=== PATIENT | male | born 1955 | race Caucasian/White ===

== ENCOUNTER 2016-11-07 08:12 | Day surgery (SDC) | payer MEDICARE, MEDICAID ==
[2016-11-06 13:11] VITALS: BMI 23.1
[~2016-11-07] VITALS: Ht 165.1 cm; Wt 59.0 kg
[2016-11-07] VITALS (11 sets, daily range): BP systolic 104–134; BP diastolic 58–71; PULSE 52–58; RESP 8–18; Ht 165.1 cm; Wt 59.0 kg
[2016-11-07] MEDS ORDERED: GELATIN SIZE 100 SPONGE ONE (08:49)
[2016-11-07] MEDS ORDERED: THROMBIN 5000 UNIT VIAL ONE (08:49)
[2016-11-07] MEDS ORDERED: LIDOCAINE 1% (MPF) 30 ML INJ ONE (08:49)
[2016-11-07] MEDS ORDERED: HEPARIN 1000 UNITS/ML 10 ML INJ ONE (08:50)
[2016-11-07 09:14] LABS: ADD SCAN DIFF NO
[2016-11-07 09:17] LABS: BASOPHILS % 0.7 % (0.0-2.0); EOSINOPHILS # 0.4 10^3/ul (0.0-0.5); EOSINOPHILS % 7.1 % (0.0-7.0); HEMATOCRIT 26.8 % (42.0-52.0); HEMOGLOBIN 8.9 g/dl (14.0-18.0); LYMPHOCYTES % 18.6 % (15.0-51.0); MEAN CORPUSCULAR HEMOGLOBIN 31.6 pg (29.0-33.0); MEAN CORPUSCULAR HGB CONC 33.2 g/dl (32.0-37.0); MEAN PLATELET VOLUME 8.6 fl (7.4-10.4); MONOCYTE # 0.7 10^3/ul (0.3-0.9); MONOCYTES % 12.6 % (0.0-11.0); NEUTROPHIL # 3.3 10^3/ul (1.6-7.5); NEUTROPHILS % 60.6 % (39.0-77.0); PLATELET COUNT 334 10^3/UL (140-415); RED BLOOD COUNT 2.82 10^6/ul (4.70-6.10); RED CELL DISTRIBUTION WIDTH 16.8 % (11.5-14.5); WHITE BLOOD COUNT 5.5 10^3/ul (4.8-10.8)
--- NOTE | 2016-11-07 09:30 | RADRPT ---
PROCEDURE: Chest Radiograph. CLINICAL INDICATION: Preop. TECHNIQUE: Single frontal chest radiograph. COMPARISON: None available FINDINGS: A right chest wall tunneled hemodialysis catheters in place with distal tip in the right atrium. Th e heart is magnified and may be enlarged. Patient rotation limits evaluation of the heart size. At herosclerotic calcifications are present . There is a moderate right pleural effusion with adjacent atelectasis/infiltrate. The left lung is clear. The bones are intact. IMPRESSION: 1. Moderate right pleural effusion with adjacent atelectasis/infiltrate. 2. Atherosclerotic vascular disease. 3. Right chest wall tunneled hemodialysis catheter. RPTAT: KK .Chas Krishnan MD, Date Time Electronically viewed and signed by .Chas Krishnan MD, MD on 11/07/2016 09:30 .B/
[2016-11-07 09:32] LABS: INR 1.17; PT RATIO 1.2
[2016-11-07 09:33] LABS: PARTIAL THROMBOPLASTIN TIME 33.2 Sec (25.0-35.0)
--- NOTE | 2016-11-07 09:33 | HPN ---
Date/Time of Note Date/Time of Note DATE: 11/07/16 TIME: 09:32 Interval H&P Admission Note Pt. seen H&P reviewed: No system changes TERRIE SHEEHAN MD November 07, 2016 09:32
[2016-11-07 09:36] LABS: ALBUMIN 3.5 g/dl (3.3-4.9); ALBUMIN/GLOBULIN RATIO 0.77; BILIRUBIN,INDIRECT 0.1 mg/dl (0-1.1); BILIRUBIN,TOTAL 0.1 mg/dl (0.2-1.3)
[2016-11-07 09:43] LABS: CALCIUM 8.8 mg/dl (8.4-10.2); CREATININE 3.84 mg/dl (0.61-1.24); POTASSIUM 3.9 mmol/L (3.5-5.1)
[2016-11-07] MEDS ORDERED: FENTAnyl 50 MCG/ML VIAL ONE (10:09)
[2016-11-07] MEDS ORDERED: MIDAZOLAM 1 MG/ML 2 ML INJ ONE (10:09)
[2016-11-07] MEDS ORDERED: IMDUR PO (10:17)
[2016-11-07] MEDS ORDERED: AMLO-147 PO (10:17)
[2016-11-07] MEDS ORDERED: DARB25VI IJ (10:17)
[2016-11-07] MEDS ORDERED: ATOR40TA68 PO (10:17)
[2016-11-07] MEDS ORDERED: ASPI-664 PO (10:17)
[2016-11-07] MEDS ORDERED: BENA40TA41 PO (10:17)
[2016-11-07] MEDS ORDERED: HYDROmorphONE (0.2 MG/ML) 10ML SYG IV PRN ×2 (10:30)
[2016-11-07] MEDS ORDERED: LABETALOL HCL 20MG INJ IV PRN (10:30)
[2016-11-07] MEDS ORDERED: ONDANSETRON 4 MG INJ IV PRN (10:30)
[2016-11-07] MEDS ORDERED: FENTAnyl 50 MCG/ML VIAL IV PRN (10:30)
[2016-11-07] MEDS ORDERED: DIPHENHYDRAMINE 50 MG INJ IV PRN (10:30)
[2016-11-07] MEDS ORDERED: hydrALAzine 20 MG INJ IV PRN (10:30)
[2016-11-07] MEDS ORDERED: PROPOFOL 20 ML ONE (11:12)
[2016-11-07] MEDS ORDERED: LIDOCAINE 2% (SDV) 5 ML INJ ONE (11:12)
[2016-11-07] MEDS ORDERED: CEFAZOLIN 1 GM INJ ONE (11:12)
--- NOTE | 2016-11-07 11:59 | OPR ---
DATE OF OPERATION: 11/07/2016 PREOPERATIVE DIAGNOSIS: End-stage renal disease. POSTOPERATIVE DIAGNOSIS: End-stage renal disease. PROCEDURE PERFORMED: Creation of left brachiocephalic AV fistula. SURGEON: Terrie Knight MD ANESTHESIA: Local with sedation. ESTIMATED BLOOD LOSS: Minimal. COMPLICATIONS: No intraprocedural complications. INDICATIONS: This is a 61-year-old diabetic, hypertensive gentleman with end-stage renal disease on dialysis via PermCath. He is right-handed. He has a good left upper arm cephalic vein on venous m ap. I brought him in today for left arm AV fistula creation. DESCRIPTION OF PROCEDURE: The patient was brought to the operating room and placed on the table in supine position. Left arm was prepped and draped in the usual sterile fashion. I had marked the ce phalic vein on the skin at the elbow. I looked at it on the way up. There is an area of stenosis i n the distal part of the upper arm about 5 cm above the elbow. I plan to dilate this area, which I had marked. I then anesthetized across the antecubital crease using about 10 mL of 1% Xylocaine. I made an incision across the crease and carefully dissected out the cephalic vein. I traced it alecia n into the forearm to where it divided. Ligated it distally with surgical clips and divided it. I cut the septum between the 2 branches creating a levine at the end of the vein. I then passed serial dilators. I started with a 1.5 mm dilator and went all the way up to a 3.5 mm dilator, which passed without any difficulty. There was definitely an area of narrowing in the vein about 2 to 3 cm abov e the elbow. It dilated nicely. I got good backflow and it flushed easily. I then cut the connect brannon tissue overlying the brachial artery pulse. I dissected out the brachial artery at the elbow. I clamped it proximally and distally. An 8 mm long anterior arteriotomy and anastomosed the end of the vein to the side of the artery using 6-0 Prolene suture in a running standard vascular surgical fashion. I removed the clamps. There was a good thrill in the vein all the way up into the upper a rm. There was good hemostasis. I closed the skin incision in 2 layers using an inner layer of 3-0 Vicryl and an outer layer of 4-0 Monocryl subcuticular suture. The radial pulse was not palpable preoperatively because it was so ca lcified and it remained nonpalpable, but the hand was warm, pink, and well perfused. He tolerated t he procedure well and was transferred to the recovery room in stable condition. Dictated By: TERRIE IBRAHIM/VIVIANE Conf#: [id number] DID#: [id number]
--- NOTE | 2016-11-07 18:20 | RADRPT ---
Vent Rate: 54 bpm RR Interval: 0 msec NH Interval: 162 msec QRS Duration: 88 msec QT Interval: 482 msec QTC Interval: 457 msec P-R-T Kathleen: 17 - 33 - -35 degrees Sinus bradycardia Nonspecific ST and T wave abnormality Abnormal ECG Electronically Signed By: Rudolph Callahan [id number]
== END 2016-11-07 13:51 | disposition home or self-care (01) ==
LOC: SDS 08:12
PROVIDERS: ATTEND Surgery Vascular Surgery
DX: N18.6 End stage renal disease (principal); I12.0 Hypertensive chronic kidney disease with stage 5 chronic kidney disease or end stage renal disease; E11.319 Type 2 diabetes mellitus with unspecified diabetic retinopathy without macular edema
CPT/HCPCS: 36821; 71010; 80053; 82962; 85025; 85610; 85730; 93005; C1725; J0690; J1644; J2250; J3010

== ENCOUNTER 2016-12-20 19:15 | Inpatient (IN) | payer MEDICARE, MEDICAID ==
[~2016-12-20] VITALS: Ht 167.6 cm; Wt 58.1 kg
[~2016-12-20 19:15] MED LIST: AMLO-147 PO; ASPI-664 PO; ATOR40TA68 PO; BENA40TA41 PO; DARB25VI IJ; IMDUR PO
[2016-12-20] MEDS ORDERED: CEFTRIAXONE 1 GM/50 ML (PMX) 50 ML IVPB ONE (20:00)
[2016-12-20] MEDS ORDERED: PIPER-TAZO 3.375 GM IV (PMX) 100 ML IVPB ONE (20:00)
[2016-12-20] MEDS ORDERED: IBUPROFEN 600 MG TAB PO ONE (20:00)
[2016-12-20 20:11] LABS: ADD SCAN DIFF NO
[2016-12-20 20:17] LABS: ABNORMAL IP MESSAGE 1; BASOPHILS % 0.4 % (0.0-2.0); EOSINOPHILS # 0.5 10^3/ul (0.0-0.5); EOSINOPHILS % 8.2 % (0.0-7.0); HEMATOCRIT 25.2 % (42.0-52.0); HEMOGLOBIN 8.2 g/dl (14.0-18.0); LYMPHOCYTES # 0.6 10^3/ul (0.8-2.9); LYMPHOCYTES % 10.2 % (15.0-51.0); MEAN CORPUSCULAR HEMOGLOBIN 32.7 pg (29.0-33.0); MEAN CORPUSCULAR HGB CONC 32.5 g/dl (32.0-37.0); MEAN CORPUSCULAR VOLUME 100.4 fl (82.0-101.0); MEAN PLATELET VOLUME 8.7 fl (7.4-10.4); MONOCYTE # 0.7 10^3/ul (0.3-0.9); MONOCYTES % 11.6 % (0.0-11.0); NEUTROPHIL # 3.9 10^3/ul (1.6-7.5); NEUTROPHILS % 69.2 % (39.0-77.0); PLATELET COUNT 273 10^3/UL (140-415); RED BLOOD COUNT 2.51 10^6/ul (4.70-6.10); RED CELL DISTRIBUTION WIDTH 15.8 % (11.5-14.5); WHITE BLOOD COUNT 5.6 10^3/ul (4.8-10.8)
[2016-12-20 20:33] LABS: INR 1.1; PROTIME 14.2 Sec (12.2-14.2); PT RATIO 1.1
--- NOTE | 2016-12-20 20:48 | ERA ---
ER Documentation Chief Complaint Date/Time DATE: 12/20/16 TIME: 20:41 Chief Complaint right foot 2nd toe bleeding, pt denies pain HPI 61-year-old man brought in by EMS from care home for toenail avulsion of the right foot. Patient has a long history of severe onychomycosis, and it seems this occurred somewhat spontaneously. He denies any direct trauma to the foot and does admit to having recent redness to the right leg. He denies fevers or chills, no chest pain or shortness of breath, no vomiting or diarrhea. Patient has end-stage kidney disease and was hemodialyzed earlier today. ROS All systems reviewed and are negative except as per history of present illness. Allergies Allergies: Coded Allergies: No Known Allergy (Unverified , 11/06/16) PMhx/Soc End-stage kidney disease hemodialyzed Thursday, , Saturdays, hypertension , diabetes mellitus, dysphagia, blindness, hemiplegia, anemia, hyperlipidemia History of Surgery: No Anesthesia Reaction: No Hx Neurological Disorder: Yes (GEN. WEAKNESS UNABLE TO AMBULATE) Hx Respiratory Disorders: No Hx Cardiac Disorders: Yes (HTN, CHOLESTEROL) Hx Psychiatric Problems: No Hx Miscellaneous Medical Probl: No Hx Alcohol Use: No Hx Substance Use: No Hx Tobacco Use: No Smoking Status: Never smoker FmHx Family History: No diabetes Physical Exam Vitals Vital Signs Date Time Temp Pulse Resp B/P Pulse Ox O2 Delivery O2 Flow Rate FiO2 12/20/16 19:18 98.3 67 20 157/70 96 Physical Exam GENERAL: Well-developed, well-nourished, well-hydrated, in no apparent distress , looks nontoxic in appearance HEENT: Moist mucous membranes, pink conjunctiva, no cervical spine tenderness or step-off deformities, no goiter, no jaundice or icterus, extraocular movements intact without pain. No submandibular induration, and no pharyngeal erythema NEURO: Alert and oriented 3, cranial nerves II through XII intact bilaterally, pupils equal round reactive to light, no facial asymmetry, mild motor deficit to the left upper and lower extremity compared to the right CARDIAC: Regular rate and rhythm, no murmurs rubs or gallops LUNGS: Clear bilaterally no wheezing crackles or stridor ABDOMEN: Soft nontender, no guarding, no rigidity, no rebound, no psoas sign no obturator sign. Normoactive bowel sounds SKIN: Large amount of erythema and skin induration to the right lower leg with multiple superficial ulcerations concerning for cellulitis, toenail of the right foot third toe is completely avulsed, no active bleeding. EXTREMITIES: No clubbing cyanosis or edema, calves are bilaterally symmetrical, no Homans sign, no popliteal cord sign. Distal pulses equal and bilateral PSYCH: Normal affect without agitation or irritability Result Diagram: 12/20/16195412/20/161954 Results 24 hrs Laboratory Tests Test 12/20/16 19:55 White Blood Count 5.610^3/ul Red Blood Count 2.5110^6/ul Hemoglobin 8.2g/dl Hematocrit 25.2% Mean Corpuscular Volume 100.4fl Mean Corpuscular Hemoglobin 32.7pg Mean Corpuscular Hemoglobin Concent 32.5g/dl Red Cell Distribution Width 15.8% Platelet Count 76510^3/UL Mean Platelet Volume 8.7fl Neutrophils % 69.2% Lymphocytes % 10.2% Monocytes % 11.6% Eosinophils % 8.2% Basophils % 0.4% Nucleated Red Blood Cells % 0.0/100WBC Neutrophils # 3.910^3/ul Lymphocytes # 0.610^3/ul Monocytes # 0.710^3/ul Eosinophils # 0.510^3/ul Basophils # 0.010^3/ul Nucleated Red Blood Cells # 0.010^3/ul Prothrombin Time 14.2Sec Prothrombin Time Ratio 1.1 INR International Normalized Ratio 1.10 Sodium Level 136mmol/L Potassium Level 4.2mmol/L Chloride Level 97mmol/L Carbon Dioxide Level 29mmol/L Anion Gap 14 Blood Urea Nitrogen 35mg/dl Creatinine 3.28mg/dl Glucose Level 222mg/dl Calcium Level 8.8mg/dl Total Bilirubin 0.0mg/dl Direct Bilirubin 0.00mg/dl Indirect Bilirubin 0.0mg/dl Aspartate Amino Transf (AST/SGOT) 27IU/L Alanine Aminotransferase (ALT/SGPT) 23IU/L Alkaline Phosphatase 209IU/L Troponin I 0.039ng/ml Total Protein 8.3g/dl Albumin 4.2g/dl Globulin 4.10g/dl Albumin/Globulin Ratio 1.02 Lipase 66U/L Current Medications Medications (Trade) Dose Ordered Sig/Elliot Route PRN Reason Start Time Stop Time Status Last Admin Dose Admin Ceftriaxone Sodium 50 ml @ 100 mls/hr ONCE ONCE IVPB 12/20/16 20:00 12/20/16 20:29 DC 12/20/16 20:15 Piperacillin Sod/ Tazobactam Sod (Zosyn 3.375gm/ 100 ml (Pmx)) 100 ml @ 200 mls/hr ONCE ONCE IVPB 12/20/16 20:00 12/20/16 20:29 DC 12/20/16 20:15 Ibuprofen (Motrin) 600 mg ONCE ONCE PO 12/20/16 20:00 12/20/16 20:01 DC 12/20/16 20:15 Procedures/MDM IV line was established patient was placed on machine wiper rhythm strip revealed a sinus rhythm at about 70 bpm with upright P and T waves. Patient was afebrile. EKG performed, read by me: 67 bpm, normal sinus rhythm, normal axis, no acute ST segment changes, narrow QRS complex, with good R-wave progression in precordial leads. One view chest x-ray performed, read by me revealed a pleural effusion on the right and hemodialysis catheter in the right chest, no acute infiltrates, no pneumothorax. Three-view x-ray of the right foot performed, read by me there is chronic arthritic changes and osteopenia, no acute fracture or dislocation noted. I administered ibuprofen 600 mg p.o. and ceftriaxone 1 g IV as well as Zosyn 3.375 g IV for right lower extremity cellulitis. CBC reveals anemia with a hemoglobin of 8.2, electrolytes reveal renal failure, liver function tests normal, troponin negative. Patient to be admitted to [facility] for acute right lower extremity cellulitis. Departure Diagnosis: Primary Impression: Cellulitis of right lower extremity Additional Impressions: Hypertension Qualified Code: I10 - Essential hypertension End stage kidney disease Anemia Qualified Code: D64.9 - Anemia, unspecified type Toenail avulsion Qualified Code: S91.209A - Toenail avulsion, initial encounter Condition: GERRI Cuevas MD Dec 20, 2016 20:48
[2016-12-20 20:49] LABS: ALBUMIN 4.2 g/dl (3.3-4.9); ALBUMIN/GLOBULIN RATIO 1.02; CALCIUM 8.8 mg/dl (8.4-10.2); CREATININE 3.28 mg/dl (0.61-1.24); POTASSIUM 4.2 mmol/L (3.5-5.1); TOTAL PROTEIN 8.3 g/dl (6.1-8.1)
--- NOTE | 2016-12-20 20:53 | RADRPT ---
PROCEDURE: X-ray right foot CLINICAL INDICATION: Injury to the right foot. TECHNIQUE: 3 views right foot COMPARISON: None FINDINGS: Demineralization limits evaluation of fine osseous detail. Intra-articular erosions at the first in terphalangeal joint suggesting arthropathy. Hammertoe deformities at the second through fifth toes. Soft tissue vascular calcifications. No acute fracture. IMPRESSION: Demineralization and degenerative changes, without acute fracture. RPTAT: [facility] Physician [facility] Date Time Electronically viewed and signed by Physician [facility] on 12/20/2016 20:53 RS/
--- NOTE | 2016-12-20 20:55 | RADRPT ---
PROCEDURE: XR Chest. CLINICAL INDICATION: Chest pain. Clinical concern for fracture TECHNIQUE: Portable AP upright view of the chest was obtained. COMPARISON: 11/07/2016 FINDINGS: The cardiomediastinal silhouette is within normal limits. Compressive atelectasis of the right lowe r lobe is similar to the prior exam the left lung is clear. Moderate to large right pleural effusio n obscuring the right hemidiaphragm is again noted, the left pleural space appears clear although th e left costophrenic angle is not included in the field of view. A right subclavian Perma-Cath is ag ain noted in good position. There is no evidence of pneumothorax. Mild demineralization is noted w ithout evidence of acute fracture. RPTAT:HJJR IMPRESSION: 1. No evidence of acute fracture involving the thorax. 2. Stable right lower hemithorax consolidation believed to reflect a pleural effusion with compress brannon atelectasis of the right lower lobe. Physician [place] Date Time Electronically viewed and signed by Physician [place] on 12/20/2016 20:54 /
[2016-12-20 21:01] LABS: TROPONIN-I 0.039 ng/ml (0.00-0.12)
[2016-12-20 21:39] VITALS: BP 149/70; RESP 18
[2016-12-20 21:54] VITALS: Ht 167.6 cm; Wt 58.1 kg
[2016-12-20] MEDS ORDERED: CEFTRIAXONE 1 GM/50 ML (PMX) 50 ML IVPB SCH (22:00)
[2016-12-20] MEDS ORDERED: ACETAMINOPHEN 325 MG TAB PO PRN (22:00)
[2016-12-20] MEDS ORDERED: GLUCOSE GEL 15 GRAM TUBE BUCCAL PRN (22:30)
[2016-12-20] MEDS ORDERED: GLUCAGON 1 MG INJ IM PRN (22:30)
[2016-12-20] MEDS ORDERED: DEXTROSE 50% 50 ML SYRINGE IV PRN ×2 (22:30)
[2016-12-20] MEDS ORDERED: GLUCOSE GEL 15 GRAM TUBE PO PRN ×2 (22:30)
[2016-12-21] MEDS: ACCU-CHEK XX SCH (01:48)
[2016-12-21 05:38] LABS: ADD SCAN DIFF NO
[2016-12-21 05:53] LABS: BASOPHILS % 0.6 % (0.0-2.0); EOSINOPHILS # 0.6 10^3/ul (0.0-0.5); EOSINOPHILS % 10.9 % (0.0-7.0); HEMATOCRIT 26.2 % (42.0-52.0); HEMOGLOBIN 8.2 g/dl (14.0-18.0); LYMPHOCYTES # 0.7 10^3/ul (0.8-2.9); LYMPHOCYTES % 13.7 % (15.0-51.0); MEAN CORPUSCULAR HEMOGLOBIN 31.9 pg (29.0-33.0); MEAN CORPUSCULAR HGB CONC 31.3 g/dl (32.0-37.0); MEAN CORPUSCULAR VOLUME 101.9 fl (82.0-101.0); MEAN PLATELET VOLUME 8.7 fl (7.4-10.4); MONOCYTE # 0.7 10^3/ul (0.3-0.9); MONOCYTES % 13.5 % (0.0-11.0); NEUTROPHIL # 3.2 10^3/ul (1.6-7.5); NEUTROPHILS % 60.7 % (39.0-77.0); PLATELET COUNT 264 10^3/UL (140-415); RED BLOOD COUNT 2.57 10^6/ul (4.70-6.10); RED CELL DISTRIBUTION WIDTH 15.9 % (11.5-14.5); WHITE BLOOD COUNT 5.3 10^3/ul (4.8-10.8)
[2016-12-21 07:20] VITALS: BP 158/72; RESP 18
[2016-12-21] MEDS: INSULIN ASPART [NOVOLOG] 3 ML PEN SC SCH ×4 (08:15→20:49)
[2016-12-21] MEDS ORDERED: IMDUR 60 MG PO SCH (09:00)
[2016-12-21] MEDS ORDERED: AMLODIPINE 10 MG TAB PO SCH (09:00)
[2016-12-21] MEDS ORDERED: ISOSORBIDE MONONITRATE(SR)60 MG TAB PO SCH (09:00)
[2016-12-21] MEDS ORDERED: BENAZEPRIL 40 MG TAB PO SCH (09:00)
[2016-12-21] MEDS: ASPIRIN 81 MG TAB PO SCH (09:00)
[2016-12-21] MEDS: ASPIRIN (EC) 81 MG TAB PO SCH (10:03)
[2016-12-21] MEDS: AMLODIPINE 10 MG TAB PO SCH (10:04)
[2016-12-21] MEDS: ISOSORBIDE MONONITRATE(SR)60 MG TAB PO SCH (10:04)
[2016-12-21] MEDS: BENAZEPRIL 40 MG TAB PO SCH (10:04)
[2016-12-21] MEDS: HEPARIN 5,000 UNIT/0.5 ML VIAL SC SCH ×2 (10:12→20:47)
[2016-12-21] MEDS: [UNRECOGNIZED DRUG - REMARK] XX SCH ×2 (10:30→18:30)
--- NOTE | 2016-12-21 18:19 | QN ---
Documentation Comment [id number] MAGALI CHÁVEZ MD Dec 21, 2016 18:19
--- NOTE | 2016-12-21 18:46 | HP ---
DATE OF ADMISSION: 12/20/2016 HISTORY OF PRESENT ILLNESS: Mr. Powell history is a 61-year-old male who has a history of ESRD, hypertension, a right chest catheter, AV fistula in the left upper extremity. The patient had a left brachiocephalic AV fistula placement 11/07/2016. Noted to have a right foot second toenail came off and patient has leg lesion and is admitted for further management. PAST MEDICAL HISTORY: Positive for hypertension, diabetes mellitus, diabetic nephropathy, retinopathy, and the patient has history of CAD, atherosclerotic heart disease, dyslipidemia, per patient. ALLERGY HISTORY: NEGATIVE. FAMILY HISTORY: Negative. SOCIAL HISTORY: Negative. MEDICATION HISTORY: Listed as patient is on: 1. Amlodipine. 2. Aspirin. 3. Benazepril. 4. Rocephin. 5. The patient is on heparin. 6. Insulin. 7. Isosorbide. REVIEW OF SYSTEMS: HEENT: Positive for diabetic retinopathy. RESPIRATORY: Unremarkable. CARDIOVASCULAR: Unremarkable. ABDOMEN: Unremarkable. EXTREMITIES: Complaining of pain and redness of the right lower extremity. PHYSICAL EXAMINATION: GENERAL: The patient is awake, alert. VITAL SIGNS: Blood pressure 149/70. HEAD: Atraumatic, normocephalic. Pupils: Left pupil has some cloudiness. Pale conjunctivae. NECK: Supple. No JVD. LUNGS: Clear. CARDIOVASCULAR: S1, S2 normal. ABDOMEN: Soft. Bowel sounds positive. No palpable mass or hepatosplenomegaly. No guarding, rebound tenderness. EXTREMITIES: No cyanosis, clubbing. Edema positive. The patient has cellulitic area of the right lower extremity and right second toenail has been removed. CENTRAL NERVOUS SYSTEM: The patient is awake, alert. No deficit. LABORATORY DATA: WBC 5.3, hematocrit 26.2, platelet count of 264. Sodium 136, potassium 4.2. Alkaline phosphatase 209, globulin 4.10. IMAGING: The patient had a foot x-ray done. Shows and degenerative changes without acute fracture. The patient had a chest x-ray that shows no evidence of acute fractures, stable right lower hemithorax with consolidation, pleural effusion with compressive atelectasis. IMPRESSION: 1. Right leg cellulitis. 2. Removal of the second toenail. 3. The patient has hypertension. 4. Diabetes mellitus. 5. Endstage renal disease. 6. Anemia. 7. Possible diabetic retinopathy. 8. History of coronary artery disease. 9. History of dyslipidemia. PLAN: To continue renal diet. Sliding scale. Wound care. Podiatry consultation. Orders were done. Dictated By: MAGALI CHÁVEZ MD BS/NTS Conf#: [id number] DID#: [id number]
[2016-12-21 19:29] VITALS: BP 151/67; RESP 18
[2016-12-21] MEDS: CEFTRIAXONE 1 GM/50 ML (PMX) 50 ML IVPB SCH (20:49)
[2016-12-21] MEDS: ATORVASTATIN 40 MG TAB PO SCH (20:49)
[2016-12-21] MEDS ORDERED: ATORVASTATIN 40 MG TAB PO SCH (21:00)
[2016-12-22] MEDS: ACCU-CHEK XX SCH (02:00)
[2016-12-22] MEDS: [UNRECOGNIZED DRUG - REMARK] XX SCH ×3 (02:30→17:44)
[2016-12-22] MEDS: HYDROCODONE/APAP (5/325) TAB PO PRN ×2 (02:30→07:53)
[2016-12-22 06:36] LABS: CALCIUM 8.7 mg/dl (8.4-10.2); CREATININE 5.59 mg/dl (0.61-1.24); POTASSIUM 4.9 mmol/L (3.5-5.1)
[2016-12-22] MEDS: INSULIN ASPART [NOVOLOG] 3 ML PEN SC SCH ×4 (07:49→21:00)
[2016-12-22 07:54] VITALS: BP 158/70; RESP 16
[2016-12-22] MEDS: ASPIRIN (EC) 81 MG TAB PO SCH (09:03)
[2016-12-22] MEDS: AMLODIPINE 10 MG TAB PO SCH (09:04)
[2016-12-22] MEDS: ISOSORBIDE MONONITRATE(SR)60 MG TAB PO SCH (09:04)
[2016-12-22] MEDS: BENAZEPRIL 40 MG TAB PO SCH (09:04)
[2016-12-22] MEDS: HEPARIN 5,000 UNIT/0.5 ML VIAL SC SCH ×2 (09:12→21:10)
[2016-12-22] MEDS: ASPIRIN 81 MG TAB PO SCH (09:12)
--- NOTE | 2016-12-22 17:47 | PN ---
Date/Time of Note Date/Time of Note DATE: 12/22/16 TIME: 17:43 Assessment/Plan VTE Prophylaxis VTE Prophylaxis Intervention: other Lines/Catheters IV Catheter Type (from [facility]): Saline Lock Urinary Cath still in place: No Assessment/Plan Chief Complaint/Hosp Course IMPRESSION: 1. Right leg cellulitis. 2. Removal of the second toenail. 3. The patient has hypertension. 4. Diabetes mellitus. 5. Endstage renal disease. 6. Anemia. 7. Possible diabetic retinopathy. 8. History of coronary artery disease. 9. History of dyslipidemia. plan hd am antibiotic Problems: Subjective 24 Hr Interval Summary Respiratory: no complaints Cardiovascular: no complaints Gastrointestinal: no complaints Exam/Review of Systems Vital Signs Vitals Vital Signs Date Time Temp Pulse Resp B/P Pulse Ox O2 Delivery O2 Flow Rate FiO2 12/22/16 07:54 98.6 60 16 158/70 95 12/20/16 20:24 Room Air 12/20/16 20:15 3 Intake and Output 12/21/16 12/21/16 12/22/16 15:00 23:00 07:00 Intake Total 530 ml 550 ml Output Total 650 ml Balance 530 ml -100 ml Exam Neck: supple Respiratory: clear to auscultation Cardiovascular: regular rate and rhythm Gastrointestinal: soft Skin: other (rt leg wound redness less) Results Result Diagram: 12/21/16 0454 12/22/16 0540 Results 24 hrs Laboratory Tests Test 12/21/16 20:46 12/22/16 05:40 12/22/16 07:48 12/22/16 12:00 Bedside Glucose 170 98 156 Sodium Level 138 Potassium Level 4.9 Chloride Level 101 Carbon Dioxide Level 22 Anion Gap 20 H Blood Urea Nitrogen 66 #H Creatinine 5.59 #H Glucose Level 103 # Calcium Level 8.7 Test 12/22/16 17:10 Bedside Glucose 194 Medications Medications Current Medications Amlodipine Besylate (Norvasc) 10 mg DAILY PO Last administered on 12/22/16 09: 04; Admin Dose 10 MG; Start 12/21/16 at 09:00 Aspirin (Halfprin) 81 mg DAILY PO Last administered on 12/22/16 09:03; Admin Dose 81 MG; Start 12/21/16 at 09:00 Atorvastatin Calcium (Lipitor) 40 mg QHS PO Last administered on 12/21/16 20: 49; Admin Dose 40 MG; Start 12/21/16 at 21:00 Benazepril HCl (Lotensin) 40 mg DAILY PO Last administered on 12/22/16 09:04; Admin Dose 40 MG; Start 12/21/16 at 09:00 Miscellaneous Information 25 mcg WEEKLY IJ ; Start 12/20/16 at 22:00; Status UNV Isosorbide Mononitrate (Imdur) 60 mg DAILY PO Last administered on 12/22/16 09 :04; Admin Dose 60 MG; Start 12/21/16 at 09:00 Diagnostic Test (Pha) (Accu-Chek) 1 ea 02 XX ; Start 12/21/16 at 02:00 Heparin Sodium (Porcine) (Heparin (5000 Units/0.5 ml)) 5,000 unit BID SC Last administered on 12/22/16 09:12; Admin Dose 5,000 UNIT; Start 12/21/16 at 09:00 Acetaminophen (Tylenol Tab) 650 mg Q6H PRN PO PAIN AND OR ELEVATED TEMP; Start 12/20/16 at 22:00 Acetaminophen/ Hydrocodone Bitart ([place] (5/325)) 1 tab Q6H PRN PO PAIN Last administered on 12/22/16 07:53; Admin Dose 1 TAB; Start 12/20/16 at 22:00 Miscellaneous Information 1 ea NOTE XX ; Start 12/20/16 at 22:30 Glucose (Glutose) 15 gm Q15M PRN PO DECREASED GLUCOSE; Start 12/20/16 at 22:30 Glucose (Glutose) 22.5 gm Q15M PRN PO DECREASED GLUCOSE; Start 12/20/16 at 22: 30 Dextrose (D50w Syringe) 25 ml Q15M PRN IV DECREASED GLUCOSE; Start 12/20/16 at 22:30 Dextrose (D50w Syringe) 50 ml Q15M PRN IV DECREASED GLUCOSE; Start 12/20/16 at 22:30 Glucagon (Glucagen) 1 mg Q15M PRN IM DECREASED GLUCOSE; Start 12/20/16 at 22:30 Glucose (Glutose) 15 gm Q15M PRN BUCCAL DECREASED GLUCOSE; Start 12/20/16 at 22 :30 Aspirin 81 mg 81 mg DAILY PO Last administered on 12/22/16 09:12; Admin Dose 81 MG; Start 12/21/16 at 09:00 Ceftriaxone Sodium (Rocephin) 50 ml @ 100 mls/hr Q24H IVPB Last administered on 12/21/16t 20:49; Admin Dose 100 MLS/HR; Start 12/21/16 at 20:00 Miscellaneous Information (*Order Clarification Bulletin) Darbepoetin Jarrett in [place]... Q8H XX ; Start 12/21/16 at 10:30 MAGALI CHÁVEZ MD Dec 22, 2016 17:47
[2016-12-22 20:00] VITALS: BP 130/62; RESP 18
[2016-12-22] MEDS: CEFTRIAXONE 1 GM/50 ML (PMX) 50 ML IVPB SCH (20:07)
[2016-12-22] MEDS: BISACODYL (EC) 5 MG TAB PO SCH (21:08)
[2016-12-22] MEDS: DOCUSATE SODIUM 100 MG CAP PO SCH (21:08)
[2016-12-22] MEDS: ATORVASTATIN 40 MG TAB PO SCH (21:08)
[2016-12-23] VITALS (13 sets, daily range): BP systolic 147–168; BP diastolic 67–88; PULSE 60–65; RESP 16–18
[2016-12-23] MEDS: HYDROCODONE/APAP (5/325) TAB PO PRN ×2 (00:09→22:18)
[2016-12-23] MEDS: [UNRECOGNIZED DRUG - REMARK] XX SCH (01:36)
[2016-12-23] MEDS: ACCU-CHEK XX SCH (01:36)
[2016-12-23] MEDS: INSULIN ASPART [NOVOLOG] 3 ML PEN SC SCH ×4 (08:15→20:33)
[2016-12-23] MEDS ORDERED: HEPARIN 1000 UNITS/ML 10 ML INJ CATHETER ONE (09:00)
[2016-12-23] MEDS: POLYETHYLENE GLYCOL 17 GM PACKET PO SCH (11:43)
[2016-12-23] MEDS: BISACODYL (EC) 5 MG TAB PO SCH ×2 (11:44→20:24)
[2016-12-23] MEDS: DOCUSATE SODIUM 100 MG CAP PO SCH ×2 (11:44→20:24)
[2016-12-23] MEDS: ASPIRIN (EC) 81 MG TAB PO SCH (11:45)
[2016-12-23] MEDS: HEPARIN 5,000 UNIT/0.5 ML VIAL SC SCH ×2 (11:47→20:29)
[2016-12-23] MEDS: ISOSORBIDE MONONITRATE(SR)60 MG TAB PO SCH (11:51)
[2016-12-23] MEDS: BENAZEPRIL 40 MG TAB PO SCH (11:51)
[2016-12-23] MEDS: AMLODIPINE 10 MG TAB PO SCH (11:51)
[2016-12-23] MEDS: ASPIRIN 81 MG TAB PO SCH (12:34)
--- NOTE | 2016-12-23 19:09 | PN ---
Date/Time of Note Date/Time of Note DATE: 12/23/16 TIME: 19:08 Assessment/Plan VTE Prophylaxis VTE Prophylaxis Intervention: other Lines/Catheters IV [facility]from [facility] Saline Lock Urinary Cath still in place: No Assessment/Plan Chief Complaint/Hosp Course IMPRESSION: 1. Right leg cellulitis. 2. Removal of the second toenail. NO DISCHARGE 3. The patient has hypertension. 4. Diabetes mellitus. 5. Endstage renal disease. 6. Anemia. 7. Possible diabetic retinopathy. 8. History of coronary artery disease. 9. History of dyslipidemia. plan hd am antibiotic WOUND CARE Problems: Subjective 24 Hr Interval Summary Respiratory: no complaints Cardiovascular: no complaints Exam/Review of Systems Vital Signs Vitals Vital Signs Date Time Temp Pulse Resp B/P Pulse Ox O2 Delivery O2 Flow Rate FiO2 12/23/16 11:08 64 14 12/23/16 07:26 98.4 156/70 94 12/20/16 20:24 Room Air 12/20/16 20:15 3 Intake and Output 12/22/16 12/22/16 12/23/16 15:00 23:00 07:00 Intake Total 1080 ml 450 ml Balance 1080 ml 450 ml Exam Neck: supple Respiratory: clear to auscultation Cardiovascular: regular rate and rhythm Gastrointestinal: soft Musculoskeletal: nl extremities to inspection Results Result Diagram: 12/21/16 0454 12/22/16 0540 Results 24 hrs Laboratory Tests Test 12/22/16 21:14 12/23/16 08:05 12/23/16 11:33 12/23/16 17:24 Bedside Glucose 132 88 152 105 Medications Medications Current Medications Amlodipine Besylate (Norvasc) 10 mg DAILY PO Last administered on 12/23/16 11: 51; Admin Dose 10 MG; Start 12/21/16 at 09:00 Aspirin (Halfprin) 81 mg DAILY PO Last administered on 12/23/16 11:45; Admin Dose 81 MG; Start 12/21/16 at 09:00 Atorvastatin Calcium (Lipitor) 40 mg QHS PO Last administered on 12/22/16 21: 08; Admin Dose 40 MG; Start 12/21/16 at 21:00 Benazepril HCl (Lotensin) 40 mg DAILY PO Last administered on 12/23/16 11:51; Admin Dose 40 MG; Start 12/21/16 at 09:00 Isosorbide Mononitrate (Imdur) 60 mg DAILY PO Last administered on 12/23/16 11 :51; Admin Dose 60 MG; Start 12/21/16 at 09:00 Diagnostic Test (Pha) (Accu-Chek) 1 ea 02 XX ; Start 12/21/16 at 02:00 Heparin Sodium (Porcine) (Heparin (5000 Units/0.5 ml)) 5,000 unit BID SC Last administered on 12/23/16 11:47; Admin Dose 5,000 UNIT; Start 12/21/16 at 09:00 Acetaminophen (Tylenol Tab) 650 mg Q6H PRN PO PAIN AND OR ELEVATED TEMP; Start 12/20/16 at 22:00 Acetaminophen/ Hydrocodone Bitart ([place] (5/325)) 1 tab Q6H PRN PO PAIN Last administered on 12/23/16 00:09; Admin Dose 1 TAB; Start 12/20/16 at 22:00 Miscellaneous Information 1 ea NOTE XX ; Start 12/20/16 at 22:30 Glucose (Glutose) 15 gm Q15M PRN PO DECREASED GLUCOSE; Start 12/20/16 at 22:30 Glucose (Glutose) 22.5 gm Q15M PRN PO DECREASED GLUCOSE; Start 12/20/16 at 22: 30 Dextrose (D50w Syringe) 25 ml Q15M PRN IV DECREASED GLUCOSE; Start 12/20/16 at 22:30 Dextrose (D50w Syringe) 50 ml Q15M PRN IV DECREASED GLUCOSE; Start 12/20/16 at 22:30 Glucagon (Glucagen) 1 mg Q15M PRN IM DECREASED GLUCOSE; Start 12/20/16 at 22:30 Glucose (Glutose) 15 gm Q15M PRN BUCCAL DECREASED GLUCOSE; Start 12/20/16 at 22 :30 Aspirin 81 mg 81 mg DAILY PO Last administered on 12/23/16 12:34; Admin Dose 81 MG; Start 12/21/16 at 09:00 Ceftriaxone Sodium (Rocephin) 50 ml @ 100 mls/hr Q24H IVPB Last administered on 12/22/16 20:07; Admin Dose 100 MLS/HR; Start 12/21/16 at 20:00 Bisacodyl (Dulcolax) 10 mg BID PO Last administered on 12/23/16 11:44; Admin Dose 10 MG; Start 12/22/16 at 21:00 Docusate Sodium (Colace) 100 mg BID PO Last administered on 12/23/16 11:44; Admin Dose 100 MG; Start 12/22/16 at 21:00 Polyethylene Glycol (Miralax) 8.5 gm DAILY PO Last administered on 12/23/16 11 :43; Admin Dose 8.5 GM; Start 12/23/16 at 09:00 MAGALI CHÁVEZ MD Dec 23, 2016 19:09
[2016-12-23] MEDS: CEFTRIAXONE 1 GM/50 ML (PMX) 50 ML IVPB SCH (20:12)
[2016-12-23] MEDS: ATORVASTATIN 40 MG TAB PO SCH (20:25)
[2016-12-24] MEDS: ACCU-CHEK XX SCH (02:23)
[2016-12-24 07:20] VITALS: BP 164/77; RESP 18
[2016-12-24] MEDS: INSULIN ASPART [NOVOLOG] 3 ML PEN SC SCH ×2 (07:56→12:03)
[2016-12-24] MEDS: BENAZEPRIL 40 MG TAB PO SCH (08:02)
[2016-12-24] MEDS: BISACODYL (EC) 5 MG TAB PO SCH (08:02)
[2016-12-24] MEDS: POLYETHYLENE GLYCOL 17 GM PACKET PO SCH (08:02)
[2016-12-24] MEDS: AMLODIPINE 10 MG TAB PO SCH (08:02)
[2016-12-24] MEDS: ASPIRIN 81 MG TAB PO SCH (08:02)
[2016-12-24] MEDS: DOCUSATE SODIUM 100 MG CAP PO SCH (08:02)
[2016-12-24] MEDS: ISOSORBIDE MONONITRATE(SR)60 MG TAB PO SCH (08:02)
[2016-12-24] MEDS: ASPIRIN (EC) 81 MG TAB PO SCH (08:02)
[2016-12-24] MEDS: HEPARIN 5,000 UNIT/0.5 ML VIAL SC SCH (08:07)
--- NOTE | 2016-12-24 12:37 | PDOCDIS ---
Discharge Instructions CONDITION Patient Condition: Stable ACTIVITY: Activity Restrictions: Slowly Increase Activity FOLLOW UP/APPOINTMENTS Follow-up Plan f/u pcp at [facility] MAGALI CHÁVEZ MD Dec 24, 2016 12:37
== END 2016-12-24 16:45 | DRG 602 ==
LOC: E/R 19:15 → MS2 20:07
PROVIDERS: ADMIT Internal Medicine Nephrology; ATTEND Internal Medicine Nephrology
PROC: 5A1D60Z (ICD-10-PCS; principal; 2016-12-23)
DX: L03.115 Cellulitis of right lower limb (principal); N18.6 End stage renal disease; E11.22 Type 2 diabetes mellitus with diabetic chronic kidney disease; I13.11 Hypertensive heart and chronic kidney disease without heart failure, with stage 5 chronic kidney disease, or end stage renal disease; E11.40 Type 2 diabetes mellitus with diabetic neuropathy, unspecified; E11.319 Type 2 diabetes mellitus with unspecified diabetic retinopathy without macular edema; Z99.2 Dependence on renal dialysis; I25.10 Atherosclerotic heart disease of native coronary artery without angina pectoris; E78.5 Hyperlipidemia, unspecified; D64.9 Anemia, unspecified
CPT/HCPCS: 36415; 71010; 73630; 80048; 80053; 82962; 83690; 84484; 85025; 85610; 87081; 90935; 93005; 96365; 96368; J0696; J1644; J1815; J2543

== ENCOUNTER 2017-08-05 02:14 | Emergency (ER) | END 2017-08-05 09:30 | disposition home or self-care (01) ==

== ENCOUNTER 2018-09-03 05:53 | Day surgery (SDC) | payer MEDICARE ==
[2018-09-03] VITALS (25 sets, daily range): BP systolic 131–166; BP diastolic 42–75; PULSE 52–61; RESP 13–22; Ht 157.5 cm; Wt 63.5 kg
[~2018-09-03] VITALS: Ht 157.5 cm; Wt 63.5 kg
[2018-09-03] MEDS ORDERED: CEFAZOLIN 1 GM INJ ONE (07:00)
--- NOTE | 2018-09-03 07:02 | HPN ---
Date/Time of Note Date/Time of Note DATE: 09/03/18 TIME: 07:02 Interval H&P Admission Note Pt. seen H&P reviewed: No system changes TERRIE SHEEHAN MD Sep 03, 2018 07:02
[2018-09-03] MEDS ORDERED: HEPARIN 1000 UNITS/ML 10 ML INJ ONE (07:32)
[2018-09-03] MEDS ORDERED: GELATIN SIZE 100 SPONGE ONE (07:32)
[2018-09-03] MEDS ORDERED: LIDOCAINE 1% (MPF) 30 ML INJ ONE (07:32)
[2018-09-03] MEDS ORDERED: THROMBIN (BOVINE) 5,000 UNIT VIAL TP ONE (07:32)
[2018-09-03] MEDS ORDERED: GABA100C14 PO (07:35)
[2018-09-03] MEDS ORDERED: CARV12.598 PO (07:35)
[2018-09-03] MEDS ORDERED: PANT40TA3 PO (07:35)
[2018-09-03] MEDS ORDERED: DORZ10DR22 LEFT EYE (07:35)
[2018-09-03] MEDS ORDERED: AMLO5TAB4 PO (07:35)
[2018-09-03] MEDS ORDERED: HYDR-3672 PO (07:35)
[2018-09-03] MEDS ORDERED: LACT20SO2 PO (07:43)
[2018-09-03] MEDS ORDERED: ISOS60TA PO (07:43)
[2018-09-03] MEDS ORDERED: SENN-120 PO (07:43)
[2018-09-03] MEDS ORDERED: DOCU-159 PO (07:43)
[2018-09-03] MEDS ORDERED: ACET-2047 PO (07:44)
[2018-09-03] MEDS ORDERED: SEVE800T7 PO (07:44)
--- NOTE | 2018-09-03 07:44 | PREAC ---
Date/Time of Note Date/Time of Note DATE: 09/03/18 TIME: 07:42 Anesthesia Eval and Record Evaluation Time Pre-Procedure Interview DATE: 09/03/18 TIME: 07:42 Age 62 Sex male NPO: 8 hrs Preoperative diagnosis ESRD Planned procedure L AVF creation Past Medical History Past Medical History: Includes Cardio: HTN, Dyslipidemia, CAD Endo: Diabetes Musculoskeletal: Osteoarthritis Renal: ESRD on dialysis GI: GERD Heme: Anemia Surgery & Anesthesia Issues No known issue Meds Anticoagulation: No Beta Bradly within 24 hr: No Reason Beta Bradly not given: Pt. not on B-Bradly Reported Medications Pantoprazole* (Protonix*) 40 Mg Tablet.dr, 40 MG PO DAILY, TAB 09/03/18 Hydralazine Hcl* (Hydralazine Hcl*) 50 Mg Tab, 50 MG PO TID, #90 TAB 09/03/18 Gabapentin* (Gabapentin*) 100 Mg Capsule, 100 MG PO TID, #90 CAP 09/03/18 Dorzolamide-Timolol* (Cosopt*) 2%-0.5% - 10 Ml Soln, 1 DROP LEFT EYE BID, BOTTLE 09/03/18 Carvedilol* (Coreg*) 12.5 Mg Tablet, 12.5 MG PO BID, #60 TAB 09/03/18 Amlodipine Besylate* (Norvasc*) 5 Mg Tablet, 5 MG PO BID, TAB 09/03/18 Meds reviewed: Yes Allergies Coded Allergies: No Known Allergy (Unverified , 09/03/18) Allergies Reviewed: Yes Labs/Studies Labs Reviewed: Reviewed by anesthesiologist test: N/A Studies: ECG Pre-procedure Exam Airway: Adequate mouth opening, Adequate thyromental dist Mallampati: Mallampati II Teeth: Normal Lung: Normal Heart: Normal ASA Physical Status ASA physical status: 3 Emergency: None Planned Anesthetic General/MAC: Mask, ETT, MAC Nerve block: Brachial plexus (left) Pre-operative Attestations Prior to commencing anesthesia and surgery, the patient was re-evaluated, there was verification of: *The patient's identity *The results of appropriate recent lab work and preoperative vital signs *The above evaluation not changing prior to induction *Anesthetic plan, risk benefits, alternative and complications discussed with patient/family; questions answered; patient/family understands, accepts and wishes to proceed. JAREN PALMER Sep 03, 2018 07:43
[2018-09-03] MEDS ORDERED: CLON0.3T PO (07:50)
[2018-09-03] MEDS ORDERED: NITR0.4T39 SL (07:50)
[2018-09-03] MEDS ORDERED: MULT-843 PO (07:50)
[2018-09-03] MEDS ORDERED: NOVO3I SC (07:50)
[2018-09-03] MEDS ORDERED: POLY17PO6 PO (07:50)
[2018-09-03] MEDS ORDERED: CLON-379 PO (07:50)
[2018-09-03] MEDS ORDERED: ASCO500C7 PO (07:50)
[2018-09-03] MEDS ORDERED: CHOL100062 PO (07:50)
[2018-09-03] MEDS ORDERED: FOLI1CAP PO (07:50)
[2018-09-03] MEDS ORDERED: ZINC220C5 PO (07:50)
[2018-09-03] MEDS ORDERED: ATOR40TA68 PO (07:50)
[2018-09-03] MEDS ORDERED: ROPIVACAINE 0.5 % 30 ML VIAL ONE (07:58)
[2018-09-03] MEDS ORDERED: FENTAnyl 50 MCG/ML VIAL ONE (07:58)
[2018-09-03] MEDS ORDERED: MIDAZOLAM 1 MG/ML 2 ML INJ ONE (07:58)
[2018-09-03] MEDS ORDERED: HYDROmorphONE 1 MG/5 ML IV SYRINGE IV PRN ×2 (08:00)
[2018-09-03] MEDS ORDERED: FENTAnyl 50 MCG/ML VIAL IV PRN ×2 (08:00)
[2018-09-03] MEDS ORDERED: ONDANSETRON 4 MG INJ IV PRN (08:00)
[2018-09-03] MEDS ORDERED: DIPHENHYDRAMINE 50 MG INJ IV PRN (08:00)
[2018-09-03] MEDS ORDERED: ALBUTEROL 0.083% (NEB) 2.5 MG/3 ML AMP HHN PRN (08:00)
[2018-09-03] MEDS ORDERED: METOCLOPRAMIDE 10 MG INJ IV PRN (08:00)
[2018-09-03] MEDS ORDERED: PROPOFOL 20 ML ONE (09:45)
--- NOTE | 2018-09-03 09:48 | SIPON ---
Date/Time of Note Date/Time of Note DATE: 09/03/18 TIME: 09:47 Operative Report Preoperative Diagnosis ESRD Postoperative Diagnosis same Operation/Procedure Performed L arm AV graft creation Surgeon see signature line animal assistant none Anesthesia: other Estimated blood loss: minimal Transfusion Required none Specimen none Grafts/Implants 5 mm Artegraft Complications none TERRIE SHEEHAN MD Sep 03, 2018 09:48
--- NOTE | 2018-09-03 10:18 | OPR ---
DATE OF OPERATION: 09/03/2018 PREOPERATIVE DIAGNOSIS: End-stage renal disease. POSTOPERATIVE DIAGNOSIS: End-stage renal disease. PROCEDURE PERFORMED: Creation of left upper arm AV graft. SURGEON: Terrie Knight MD ANESTHESIA: Scalene block. ESTIMATED BLOOD LOSS: Minimal. COMPLICATIONS: No intraprocedural complications. INDICATIONS: This is a 62-year-old gentleman with end-stage renal disease, diabetes, hypertension. He has had a failed left arm brachiocephalic AV fistula. He has had a catheter for a long time and I recommended just creating a left arm AV graft to get his catheter out as soon as possible. He agree s his cephalic vein just never matured. It became sclerotic in the upper arm. DESCRIPTION OF PROCEDURE: Patient was brought to the operating room and placed on the table in supin e position. Left arm was prepped and draped in the usual sterile fashion. I began by making an inci massimo over the brachial artery just above the elbow and another incision in the upper arm over the axi llary pulse. The patient has been given a scalene block already. I carefully dissected out the brac hial artery just above the elbow. It was soft and healthy, has a good caliber. In the upper arm, I dissected down own through subcutaneous tissue and identified the axillary vein and it from the artery. It was good size vein. I then tunneled a 5 mm Artegraft between the 2 incisions using Avani-Wick tunneler. I then clamped the axillary vein proximally and distally, I made about 1.5 cm l kanchan anterior arteriotomy, then anastomosed the upper end of the graft to the side of the vein using 6 -0 Prolene suture in a running standard vascular surgical fashion. I spatulated the graft to fit the venotomy. I then unclamped and flushed. There was good flow through the distal anastomosis. I cla mped the graft. I then clamped the brachial artery proximally and distally, made an 8 mm long anteri or arteriotomy, cut the graft flush to fit the arteriotomy and anastomosed the lower end of graft to the side of brachial artery using 6-0 Prolene suture in a running standard vascular surgical fashion. I removed the clamps. There was excellent thrill. There was good hemostasis. I closed the skin i ncisions in 2 layers using an inner layer of 3-0 Vicryl and an outer layer of 4-0 Monocryl subcuticul ar suture. Sterile dressing was applied. Patient was transferred to recovery room in stable conditi on. He tolerated the procedure well without any complications. Dictated By: TERRIE IBRAHIM/VIVIANE Conf#: [id number] DID#: [id number] CC: MAGALI CHÁVEZ MD;*EndCC*
--- NOTE | 2018-09-03 11:00 | PAC ---
Date/Time of Note Date/Time of Note DATE: 09/03/18 TIME: 11:00 Post-Anesthesia Notes Post-Anesthesia Note Last documented vital signs Vital Signs Date Temp Pulse Resp B/P (MAP) Pulse Ox O2 O2 Flow FiO2 Time Delivery Rate 09/03/18 52 17 97 Room Air 10:31 09/03/18 141/48 10:26 (79) 09/03/18 98.0 09:58 Activity: WNL Respiratory function: WNL Cardiovascular function: WNL Mental status: Baseline Pain reasonably controlled: Yes Hydration appropriate: Yes Nausea/Vomiting absent: Yes JAREN PALMER Sep 03, 2018 11:00
== END 2018-09-03 12:30 | disposition home or self-care (01) ==
LOC: SDS 05:53
PROVIDERS: ATTEND Surgery Vascular Surgery
DX: T82.898A Other specified complication of vascular prosthetic devices, implants and grafts, initial encounter (principal); Y84.1 Kidney dialysis as the cause of abnormal reaction of the patient, or of later complication, without mention of misadventure at the time of the procedure; I12.0 Hypertensive chronic kidney disease with stage 5 chronic kidney disease or end stage renal disease; N18.6 End stage renal disease; E11.9 Type 2 diabetes mellitus without complications; E78.5 Hyperlipidemia, unspecified; I25.10 Atherosclerotic heart disease of native coronary artery without angina pectoris
CPT/HCPCS: 36825; 80048; 82962; C1768; J1644; J2250; J2795; J3010; J0690